=== PATIENT | female | born 2000 | race Caucasian/White ===

== ENCOUNTER 2021-08-27 19:20 | Emergency (ER) | payer OTHER ==
[2021-08-27 21:11] LABS: HEMOGLOBIN 13.3 gm/dl (12.3-15.3); RED BLOOD COUNT 5.43 M/UL (4.00-5.10); WHITE BLOOD COUNT 14.3 K/UL (4.5-11.0)
[2021-08-27 21:40] LABS: BUN/CREATININE RATIO 13 (0-10)
== END 2021-08-28 00:15 | disposition home or self-care (01) ==
LOC: ER1 19:20
PROVIDERS: Physician Assistant
DX: R42 Dizziness and giddiness (principal); Z88.1 Allergy status to other antibiotic agents; F41.9 Anxiety disorder, unspecified; Z90.49 Acquired absence of other specified parts of digestive tract; Z88.0 Allergy status to penicillin
CPT/HCPCS: 71045; 80053; 80307; 81001; 84439; 84443; 84703; 85025; 87086; 93005; 99284